=== PATIENT | male | born 1945 | race Asian ===

== ENCOUNTER 2016-08-02 08:24 | Emergency (ER) | payer OTHER ==
[~2016-08-02] VITALS: Ht 185.4 cm; Wt 117.9 kg
[~2016-08-02 08:24] MED LIST: CIPRO500 MG PO; CO Q-10200 MG OR; HAWTHORN BERRI565 MG PO; IBUPROFEN IB200 MG PO; LISI20TA24 PO; NEURONTIN 100M100 MG OR; OMEGA OR; [UNRECOGNIZED DRUG - OTHER] OR
[2016-08-02 09:07] LABS: PLATELET COUNT 173 K/uL (142-355)
[2016-08-02 09:18] LABS: POTASSIUM 3.8 mmol/L (3.6-5.2); SODIUM 136 mmol/L (136-145)
[2016-08-02 10:18] VITALS: BP 174/86; TEMP 97.8
== END 2016-08-02 10:19 | disposition home or self-care (01) ==
LOC: ED 08:24
DX: R10.84 Generalized abdominal pain (principal); N28.1 Cyst of kidney, acquired
CPT/HCPCS: 36415; 80048; 81000; 85027; 99283

== ENCOUNTER 2016-09-06 10:30 | Emergency (ER) | payer OTHER ==
[~2016-09-06] VITALS: Ht 185.4 cm; Wt 121.1 kg
[2016-09-06 10:49] VITALS: TEMP 97.7
[2016-09-06 11:07] VITALS: BP 162/78
== END 2016-09-06 11:17 | disposition home or self-care (01) ==
LOC: ED 10:30
DX: M75.102 Unspecified rotator cuff tear or rupture of left shoulder, not specified as traumatic (principal); M19.012 Primary osteoarthritis, left shoulder
CPT/HCPCS: 96372; 99282; J1885; J2930

== ENCOUNTER 2016-09-13 12:55 | Outpatient (CLI) | payer OTHER ==
[2016-09-13] MEDS ORDERED: LISITAB PO (17:30)
== END 2016-09-13 12:58 | disposition short-term general hospital (02) ==
LOC: AMB 12:55
DX: R55 Syncope and collapse (principal); R61 Generalized hyperhidrosis
CPT/HCPCS: A0425; A0427

== ENCOUNTER 2016-09-21 06:56 | Outpatient (CLI) | payer OTHER ==
[~2016-09-21 06:56] MED LIST changes: +LISITAB PO
== END 2016-09-21 19:42 | disposition home or self-care (01) ==
LOC: MRI 06:56
DX: M79.602 Pain in left arm (principal)

== ENCOUNTER 2016-09-29 13:35 | Outpatient (CLI) | payer OTHER | END 2016-09-29 19:15 | disposition home or self-care (01) | LOC: RAD 13:35 | DX: M54.12 Radiculopathy, cervical region (principal) ==

== ENCOUNTER 2016-10-12 07:37 | Outpatient (CLI) | payer OTHER | END 2016-10-12 08:37 | disposition home or self-care (01) | LOC: MRI 07:37 | DX: M54.12 Radiculopathy, cervical region (principal) ==

== ENCOUNTER 2016-10-27 07:39 | Outpatient (CLI) | payer OTHER ==
[~2016-10-27] VITALS: Ht 185.4 cm; Wt 120.7 kg
== END 2016-10-27 19:11 | disposition home or self-care (01) ==
LOC: NM 07:39
DX: R55 Syncope and collapse (principal); I10 Essential (primary) hypertension; E78.4 Other hyperlipidemia
CPT/HCPCS: A9500; J2785

== ENCOUNTER 2017-01-27 13:54 | Outpatient (CLI) | payer OTHER | END 2017-01-27 19:18 | disposition home or self-care (01) | LOC: MRI 13:54 | DX: M54.5 Low back pain (principal); M47.27 Other spondylosis with radiculopathy, lumbosacral region; M51.36 Other intervertebral disc degeneration, lumbar region; M51.16 Intervertebral disc disorders with radiculopathy, lumbar region ==